=== PATIENT | male | born 1955 | race Caucasian/White ===

== ENCOUNTER → 2021-03-29 | Outpatient (CLI) | payer OTHER | LOC: NUC 07:15 | PROVIDERS: ATTEND Surgery | DX: R10.11 Right upper quadrant pain (principal); R10.12 Left upper quadrant pain ==

== ENCOUNTER → 2021-04-07 | Outpatient (CLI) | payer OTHER ==
--- NOTE | 2021-04-09 08:28 | P ---
[facility] [place] [address] PROCEDURE REPORT Name: CHRISTINE IZAGUIRRE Room #: REG COLIN Alvarez#: [id number] Admission: 04/07/21 Attend Phys: Ghassan Ramon Discharge: Date of : 59 Report #: [id number] THIS REPORT FOR: cc: Andrea Wise MD, Christopher B. MD McElhinney, Christian C. MD ~ DOC #: [id number] Ghassan Hart MD DATE OF SERVICE: 04/07/2021 PROCEDURE PERFORMED: Upper endoscopy with biopsies. HISTORY OF PRESENT ILLNESS: The patient is a 65-year-old male with a history of midepigastric abdominal pain. He underwent an ultrasound and PIPIDA scan that reportedly negative. He does take Tums on a p.r.n. basis for reflux and heartburn type symptoms. He denies any dysphagia. Plan is for upper endoscopy. DESCRIPTION OF PROCEDURE: The risks and benefits of the procedure were explained to the patient, those risks including but not limited to bleeding, perforation and the risk of sedation. He understood these risks and gave informed consent. Sedation was given using propofol per anesthesia. Next, using a standard Olympus upper endoscope, the scope was placed in the patient's mouth and advanced under direct vision through the esophagus, stomach and into the second portion of the duodenum. The upper and mid esophagus was normal in appearance. In the distal esophagus, grade B erosive esophagitis was noted, also possible segment of 5 cm of Miles's was seen. Biopsies were also obtained in this area to rule out Miles's esophagus. The gastric fundus and body were normal. A mild gastritis was noted in the gastric antrum. Biopsies obtained to rule out H. pylori. The pylorus was normal and patent. The duodenal bulb, first and second portion were normal. The scope was then withdrawn and the procedure terminated. The patient tolerated the procedure well. IMPRESSION: 1. Grade B erosive esophagitis. 2. Possible short segment Miles's esophagus. 3. Mild gastritis. 4. Otherwise, normal upper endoscopy. RECOMMENDATIONS: 1. Await biopsy results. 2. Would recommend long-term daily PPI therapy. Thank you for allowing me to participate in his care. [address] [address] PROCEDURE REPORT Name: CHRISTINE IZAGUIRRE Room #: REG COLIN Alvarez#: [id number] Admission: 04/07/21 Attend Phys: Ghassan Ramon Discharge: Date of : 59 Report #: [id number] Ghassan Hart MD CCM/KDA <ELECTRONICALLY SIGNED> By: Ghassan Hart MD 04/09/21 0828 1215 2218 Ghassan Hart MD /biju
--- NOTE | 2021-04-13 12:07 | PATH ---
[facility] [place] [address] PATHOLOGY RPT PROCEDURE Name: CHRISTINE MCKENZIE Chey Room #: REG COLIN Alvarez#: [id number] Admission: 04/07/21 Date of : 59 Discharge: Report #: [id number] Path Case #: [id number] [facility] Accession Number: [id number] . 01 Material submitted: . PART A: gastrointestinal site - BIOPSY GASTRITIS R/O H. PYLORI PART B: esophagus - BIOPSY DISTAL ESOPHAGUS R/O DAN'S. Modifiers: distal . 01 Clinical history: . EGD ABD PAIN . 02 Diagnosis: A. Gastric mucosa, gastritis, rule out H. pylori, endoscopic biopsy: - Mild reactive gastropathy. - Negative for intestinal metaplasia or atrophy. - Negative for Helicobacter pylori (properly-controlled immunohistochemical stain performed). . B. Gastric-type mucosa, distal esophagus, rule out Dan's esophagus, endoscopic biopsy: - Moderate chronic inflammation with reactive changes. - No definitive intestinal metaplasia/Dan's metaplasia present. . (IUV:mml; 04/12/2021) QLM 04/12/2021 1332 Local . 02 Electronically signed: . Lyndsey Kim MD, Pathologist NPI- [id number] . 01 Gross description: . A. The specimen is received in formalin, labeled "Christine Mckenzie BX gastritis ". Received are 4 segments of pale vazquez tissue ranging in size from 0.3 to 0.7 cm in maximum dimensions. The specimen is submitted entirely in cassette A1. . B. The specimen is received in formalin, labeled "Christine Mckenzie BX distal esophagus". Received are 2 segments of pale vazquez tissue ranging in size from 0.4 to 0.5 cm in maximum dimensions. The specimen is submitted entirely in cassette B1.([facility]; 04/09/2021) [facility] 04/09/2021 1420 Local . 02 Pathologist provided ICD-10: K31.9, K20.90 . [address] [address] PATHOLOGY RPT PROCEDURE Name: CHRISTINE MCKENZIE Room #: REG [facility] Kim#: [id number] Admission: 04/07/21 Date of : 59 Discharge: Report #: [id number] Path Case #: [id number] [facility] . [id number], [id number] Specimen Comment: A courtesy copy of this report has been sent to [phone], [phone] Specimen Comment: [id number] Specimen Comment: Report sent to / DR STEPHENS Specimen Comment: A duplicate report has been generated due to demographic updates. Performed at: [address], [place] [id number] MD Ryan Babcock MD Phone: [phone] Performed at: [address] [id number] MD Lyndsey Kim MD Phone: [phone]
== END | disposition home or self-care (01) ==
LOC: GI 10:33
PROVIDERS: ATTEND Specialist
DX: R10.13 Epigastric pain (principal); K31.9 Disease of stomach and duodenum, unspecified; K21.00 Gastro-esophageal reflux disease with esophagitis, without bleeding; Z98.890 Other specified postprocedural states
CPT/HCPCS: 62110; 62900